=== PATIENT | male | born 1950 | race Caucasian/White ===

== ENCOUNTER → 2019-06-02 07:22 | Outpatient (CLI) | payer MEDICARE, BC | END | disposition home or self-care (01) | LOC: D.US 07:22 → D.HCCARDIO 09:30 | PROVIDERS: ATTEND Internal Medicine Cardiovascular Disease | DX: I65.29 Occlusion and stenosis of unspecified carotid artery (principal) ==

== ENCOUNTER 2019-06-14 10:44 | Inpatient (IN) | payer MEDICARE, BC ==
[2019-06-14] VITALS (10 sets, daily range): BP systolic 127–163; BP diastolic 73–91; BMI 29.2; BMI 29.1
[~2019-06-14] VITALS: Ht 172.7 cm; Wt 87.5 kg
--- NOTE | ~2019-06-14 | HEMODYNAMI ---
PATIENT:CAMI KNAPP MEDICAL RECORD: [id number] : 52 LOCATION:[facility] ADMISSION DATE: 06/14/19 Generatedon:06/14/201913:41 Patient name: CAMI KNAPP Patient #: [id number] SSN: DO B: 1950 Date of study: 06/14/2019 Page: Of Hemodynamic Procedure Report Patient Data Patient Demographics Procedure consent was obtained First Name: CAMI Gender: Male Last Name: RA : 1950 Middle Initial: E Age: 69 year(s) Patient #: [id number] Race: Unknown Additional ID: [id number] Contact details [address]: [address] [place] [address] State: [place] City: [place] Zip code: [address] Past Medical History Allergies: No known allergies Admission Admission Data Admission Date: 06/14/2019 Admission Time: 10:44 Admit Source: Other Lab Results Lab Result Date: 06/14/2019 Lab Result Time: 0:00 Biochemistry Name Units Result Min Max BUN mg/dl 21 --(----)-* 7 18 Creatinine mg/dl 1.5 --(----)-* 0.6 1.3 eGFR ml/min 60 *-(----)-- 90 120 AM eGFR ml/min 49 *-(----)-- 90 120 NONAFRICAN CBC Name Units Result Min Max Hemoglobin g/dl 12.8 -*(----)-- 13.5 17.5 Procedure Procedure Types Cath Procedure Diagnostic Procedure LHC LHC w/Coronaries Procedure Description Procedure Date Procedure Date: 06/14/2019 Procedure Start Time: 13:21 Procedure End Time: 13:39 Procedure Staff Name Function Wesley Tan MD Performing Physician Hussain Smith RT Monitor Ralph Black RN Nurse Judson Simon RT Scrub Lexy Medeiros RT Scrub Procedure Data Cath Procedure Fluoroscopy Diagnostic fluoroscopy Total fluoroscopy Time: 5.5 time: 5.5 min min Diagnostic fluoroscopy Total fluoroscopy dose: 791 dose: 791 mGy mGy Contrast Material Contrast Material Type Amount (ml) Isovue 370 93 Entry Location Entry Primary Successful Side Size Upsize Upsize Entry Closure Badillo ccessful Closure Location (Fr) 1 (Fr) 2 (Fr) Remarks Device Remarks Radial Right 6 Fr Mechanical artery Short Compression Diagnostic catheters Device Type Used For End Catheter Placement DIAGNOSTIC Elmer 110cm LV Angiography 5Fr catheter ([id number]) DIAGNOSTIC AR MOD 5Fr Right Coronary Catheter ([id number]) Angiography DIAGNOSTIC Napanoch 110cm 5 Right Coronary Fr catheter ([id number]) Angiography Procedure Complications No complications Procedure Medications Medication Administration Route Dosage 0.9% NaCl I.V. 100 ml/hr Oxygen etCO2 Nasal cannula 2 l/min Heparin Flush Bag added to field 2 bags (1000units/500ml NS) Lidocaine 2% added to field 20 Radial Cocktail added to field 1 syringe (Verapamil 2mg/Nitro 400mcg/Heparin 1500units) Versed I.V. 1 mg Fentanyl I.V. 50 mcg Versed I.V. 1 mg Fentanyl I.V. 50 mcg Radial Cocktail I.A. 1 syringe (Verapamil 2mg/Nitro 400mcg/Heparin 1500units) Hemodynamics Rest HGB: 12.8 (g/dl) Heart Rate: 79 (bpm) Pressure Samples Time Site Value (mmHg) Purpose Heart Use Rate(bpm) 13:24 LV 103/-1,6 EDP 71 Gradients Valve Time Site Site Mean SEP/DFP Peak To Heart Use 1 2 (mmHg) (sec/min) Peak Rate (mmHg) (bpm) Aortic 13:25 LV AO 77 Snapshots Pre Cath Intra NCS Post Cath Vital Signs Time Heart Resp SPO2 etCO2 NIBP (mmHg) Rhythm Pain Sedation Rate (ipm) (%) (mmHg) Status Level (bpm) 13:06:36 80 11 96 0 148/85(119) NSR 0 (11) 10(A) , No pain 13:10:48 76 18 98 33.9 142/91(132) NSR 0 (11) 10(A) , No pain 13:15:08 68 16 95 24 145/80(125) NSR 0 (11) 10(A) , No pain 13:19:20 70 14 96 24.8 133/84(104) NSR 0 (11) 10(A) , No pain 13:23:36 68 11 97 13.5 127/64(83) NSR 0 (11) 9(A) , No pain 13:27:46 66 12 94 24 107/67(83) NSR 0 (11) 9(A) , No pain 13:31:58 62 12 94 1.5 117/65(90) NSR 0 (11) 9(A) , No pain 13:36:12 71 11 95 9.7 106/67(82) NSR 0 (11) 9(A) , No pain Medications Time Medication Route Dose Verified Delivered Reason Notes Effectiveness by by 13:10:22 0.9% NaCl I.V. 100 Ralph Ralph Per ml/hr Sofia Black physician RN RN 13:10:33 Oxygen etCO2 2 l/min Ralph Ralph for low 02 Nasal Lorigan Lorigan sats cannula RN RN 13:10:43 Heparin Flush added 2 bags Ralph Ralph used for Bag to Loradele Black procedure (1000units/500ml field WYNN RN NS) 13:10:54 Lidocaine 2% added 20ml Ralph Ralph for local to vial Lorigan Lorigan anesthetic field WYNN RN 13:11:04 Radial Cocktail added 1 Ralph Ralph used for (Verapamil to syringe Lorigan Natalieigan procedure 2mg/Nitro field WYNN RN 400mcg/Heparin 1500units) 13:14:00 Versed I.V. 1 mg Ralph Ralph for sedation Sofia Black RN RN 13:14:11 Fentanyl I.V. 50 mcg Ralph Ralph for sedation Sofia Black RN RN 13:21:24 Versed I.V. 1 mg Ralph Ralph for sedation Sofia Black RN RN 13:21:30 Fentanyl I.V. 50 mcg Ralph Ralph for sedation Sofia Black RN RN 13:23:56 Radial Cocktail I.A. 1 Ralph Wesley for (Verapamil syringe Sofia reyna 2mg/Nitro RN 400mcg/Heparin 1500units) Procedure Log Time Note 12:54:14 Admit Source: Other 12:54:38 Procedure Status Elective Heart Cath (OP). 12:54:42 Ralph Black RN sent for patient. Start room use. 12:54:43 Time tracking: Regular hours (M-F 7:00 - 5:00) 12:54:49 Plan of Care:Hemodynamics will remain stable., Cardiac rhythm will remain stable., Comfort level will be maintained., Respiratory function will remain adequate., Patient/ family verbilizes understanding of procedure., Procedure tolerated without complication., Recovers from procedure without complications.. 13:05:23 Patient received from Pre/Post Procedure Room to CCL 1 Alert and oriented. Tansferred to table in Supine position. 13:05:25 Signed procedure consent form obtained from patient. 13:05:26 Warm blankets applied, and zenon hugger turned on for patient comfort. 13:05:27 Correct patient and procedure confirmed by team. 13:05:27 ECG and BP/O2 sat monitors applied to patient. 13:05:28 Baseline sample Acquired. 13:05:28 Vital chart was started 13:05:31 Rhythm: sinus rhythm 13:05:33 Full Disclosure recording started 13:07:42 H&P Date Dictated: 06/02/2019 Within 30 days and on chart.. 13:07:43 Pre-procedure instructions explained to patient. 13:07:44 Pre-op teaching completed and patient verbalized understanding. 13:07:47 Family in waiting room. 13:07:49 Patient NPO since Midnight. 13:07:58 Patient allergic to No known allergies 13:08:00 Is the patient allergic to Iodine/contrast media? No. 13:08:04 Is patient on blood thinner?No 13:08:06 Patient diabetic? No. 13:08:07 ----Pre-sedation anethsthesia assessment.---- 13:08:09 Previous problem with sedation/anesthesia? No ? 13:08:11 Snore? Yes 13:08:12 Sleep apnea? No 13:08:14 Deviated septum? No 13:08:15 Opens mouth fully? Yes 13:08:17 Sticks out tongue? Yes 13:08:21 Airway obstruction? Yes COPD 13:08:25 Dentures? Yes OUT 13:08:29 Pre procedure: right dorsailis pedis pulse 2+ Normal; easily identifiable; not easily obliterated 13:08:32 Modified Chapin's test Ulnar < 7 seconds 13:08:35 Patient pain scale 0/10 ?. 13:08:40 IV patent on arrival in left antecubital with 0.9% NaCl at [facility]. 13: Lab Result : BUN 21 mg/dl : Lab Result : Creatinine 1.5 mg/dl : Lab Result : eGFR NONAFRICAN 49 ml/min : Lab Result : eGFR AM 60 ml/min : Lab Result : Hemoglobin 12.8 g/dl 13:: Lab results completed and on chart. 13:10:01 Right Radial & Right Groin area was prepped with chlora-prep and draped in sterile fashion 13:10:02 Alarms reviewed by R. N. 13:10:03 Sharps counted by scrub and verified by R.N. 13:10:04 Physician arrived 13:10:05 --------ALL STOP TIME OUT------ 13:10:06 Final Timeout: patient, procedure, and site verified with staff and physician. All members of the team are in agreement. 13:10:07 Right Radial & Right Groin site verified by team. 13:10:13 Fire Safety Assessment: A--An alcohol-based skin anteseptic being used preoperatively., C--Open oxygen or nitrous oxide is being used., D--An ESU, laser, or fiber-optic light is being used. 13:10:16 Physical assessment completed. ASA score P 2 - A patient with mild systemic disease as per Wesley Tan MD. 13:10:22 0.9% NaCl 100 ml/hr I.V. was administered by Ralph Black RN; Per physician; 13:10:24 3a) 45-59 Moderately reduced kidney function. 13:10:33 Oxygen 2 l/min etCO2 Nasal cannula was administered by Ralph Black RN; for low 02 sats; 13:10:43 Heparin Flush Bag (1000units/500ml NS) 2 bags added to field was administered by Ralph Black RN; used for procedure; 13:10:44 Maximum allowable contrast dose (3.7 X eGFR X 0.75)136 ml. 13:10:49 Sedation plan: IV Moderate Sedation Medication:Versed, Fentanyl 13:10:54 Lidocaine 2% 20ml vial added to field was administered by Ralph Black RN; for local anesthetic; 13:11:04 Radial Cocktail (Verapamil 2mg/Nitro 400mcg/Heparin 1500units) 1 syringe added to field was administered by Ralph Black RN; used for procedure; 13:14:00 Versed 1 mg I.V. was administered by Ralph Black RN; for sedation; 13:14:11 Fentanyl 50 mcg I.V. was administered by Ralph Black RN; for sedation; 13:14:37 Use device set Radial Dx or PCI 13:14:38 ACIST Syringe (15822) opened to sterile field. 13:14:38 Medline Cath Pack ([id number]) opened to sterile field. 13:14:38 Bag Decanter (2002S) opened to sterile field. 13:14:39 ACIST Hand Control (41293) opened to sterile field. 13:14:39 ACIST Manifold (35344) opened to sterile field. 13:14:40 Tegaderm 4 x 4 (1626W) opened to sterile field. 13:14:40 MBrace Wrist Support (600237310) opened to sterile field. 13:14:42 NEEDLE Cook 21G 4cm Radial (A13571) opened to sterile field. 13:14:44 TR BAND Standard ([id number]) opened to sterile field. 13:14:45 EMERALD Guide Wire (502-668) opened to sterile field. 13:14:46 SHEATH 6FR RAIN (5284585) opened to sterile field. 13:21:14 Procedure started. 13:21:24 Versed 1 mg I.V. was administered by Ralph Black RN; for sedation; 13:21:26 Local anesthetic to right radial artery with Lidocaine 2% by Wesley Tan MD.INITIAL ACCESS ONLY 13:21:30 Fentanyl 50 mcg I.V. was administered by Ralph Black RN; for sedation; 13:21:34 A 6 Fr Short sheath was inserted into the Right Radial artery 13:22:28 A DIAGNOSTIC Elmer 110cm 5Fr catheter (534764) was advanced over the wire and used for LV Angiography. 13:23:28 Zero performed for pressure channel P1 13:23:32 Zero performed for pressure channel P1 13:23:56 Radial Cocktail (Verapamil 2mg/Nitro 400mcg/Heparin 1500units) 1 syringe I.A. was administered by Wesley Tan MD; for vasodilation; 13:24:19 LV angiography performed. 13:24:52 LV gram done using JEFFERY 13:24:53 LV hemodynamics recorded. 13:24:59 Injector settings: Ml/sec: 5, Volume: 15, 13:25:15 EF : 60 % 13:27:07 LCA angiography performed. 13:30:47 Catheter exchanged over wire. 13:31:55 A DIAGNOSTIC AR MOD 5Fr Catheter ([id number]) was advanced over the wire and used for Right Coronary Angiography. 13:33:22 Catheter removed. 13:33:55 A DIAGNOSTIC Napanoch 110cm 5 Fr catheter (376326) was advanced over the wire and used for Right Coronary Angiography. 13:34:42 RCA angiography performed. 13:35:39 Catheter removed. 13:37:22 Sheath removed intact; hemostasis achieved with Mechanical Compression to the Right Radial artery. 13:37:23 Procedure ended.(Physican Out) 13:37:43 Fluoroscopy time 05.50 minutes. 13:37:49 Fluoroscopy dose: 791 mGy 13:37:49 Flurop Dose total: 791 13:38:03 Contrast amount:Isovue 370 93ml. 13:38:05 Sharps counted by scrub and verified by R.N. 13:38:08 TR band inflated with 10cc of air. 13:38:09 Insertion/operative site no bleeding no hematoma. 13:38:12 Post Procedure Pulses reassessed and unchanged 13:38:17 Post-procedure physical assessment completed. ASA score P 2 - A patient with mild systemic disease as per Wesley Tan MD. 13:38:20 Post procedure rhythm: unchanged. 13:38:22 Post procedure instruction explained to patient.Patient verbalizes understanding. 13:38:24 Procedure and supply charges have been captured, reviewed, submitted and are correct. 13:39:03 Procedure Complication : No complications 13:39:05 Vital chart was stopped 13:39:05 See physician's report for complete and final results. 13:39:08 Report given to Pre/Post Procedure Room. 13:39:10 Patient transfered to Pre/Post Procedure Room with Stretcher. 13:39:12 Procedure ended. 13:39:12 Full Disclosure recording stopped 13:39:17 End room use (Document Last) Device Usage Item Name Manufacture Quantity Catalog Hospital Part Current Minima l Lot# / Number Charge Number Stock Stock Serial# Code [facility] Acist 1 01294 852980 040952 117486 20 Syringe Medical (71579) Systems Inc Medline Medline 1 [id number] 393149 53632 331883 5 Cath Pack ([id number]) Bag Microtek 1 2001S 656467 38477 823409 5 Decanter Medical Inc. () ACIST Hand Acist 1 23283 696426 538424 639063 5 Control Medical (42227) Systems Inc ACIST Acist 1 85405 478106 007953 863757 5 Manifold Medical (84149) Systems Inc Tegaderm 4 3M 1 1626W 798009 800082 389794 5 x 4 (1626W) MBrace Advanced 1 140-0250-00 513348 48311 985984 5 Wrist Vascular Support Dynamics ([id number]) NEEDLE Cook Cook Medical 1 R76433 189951 818416 390624 5 21G 4cm Radial (P91791) TR BAND Terumo 1 GJC15-BWT 229783 941221 986572 40 Standard (YHC22MLI) EMERALD Cardinal 1 270-781 758029 534803 722996 5 Guide Wire Health (015-455) SHEATH 6FR Cardinal 1 2021511 863225 5555548 851506 5 [facility] (7459363) DIAGNOSTIC Terumo 1 40-5023 585977 230211 975398 5 Elmer 110cm 5Fr catheter (353540) DIAGNOSTIC Cardinal 1 [id number] 653292 480240 299832 15 AR MOD 5Fr Health Catheter (451887P) DIAGNOSTIC Terumo 1 405013 248444 046959 361953 5 Napanoch 110cm 5 Fr catheter (497216) Signature Audit [place] Stage Time Signature Unsigned Intra-Procedure 06/14/2019 Hussain Smith RT(R) 1:41:41 PM Signatures Performing Physician : Signature : Wesley Tan MD Date : Time : Monitor : Hussain Smith RT Signature : Date : Time : Nurse : Ralph Lorigan Signature : RN Date : Time : [address] [place] [address]
[2019-06-14] MEDS ORDERED: LISINOPRIL20 MG PO (11:02)
[2019-06-14] MEDS ORDERED: MOBIC7.5 MG PO (11:03)
[2019-06-14] MEDS ORDERED: LEVOTHYROXINE75 MCG PO (11:04)
[2019-06-14] MEDS ORDERED: PROCARDIA XL30 MG PO (11:04)
[2019-06-14] MEDS ORDERED: BUPROPION HCL75 MG PO (11:04)
[2019-06-14] MEDS ORDERED: FENOFIBRATE160 MG PO (11:04)
[2019-06-14] MEDS ORDERED: PEPCID AC20 MG PO (11:05)
[2019-06-14] MEDS ORDERED: FLOMAX0.4 MG PO (11:05)
[2019-06-14] MEDS ORDERED: LOVASTATIN20 MG PO (11:05)
[2019-06-14 11:58] LABS: BASOPHILS 0.6 % (0-2); EOSINOPHILS 4.1 % (0-7); HEMATOCRIT 37.3 % (42.0-54.0); HEMOGLOBIN 12.8 g/dL (13.5-17.5); IMMATURE GRANULOCYTES 0.3 % (0-5); LYMPHOCYTES 25.7 % (15-50); MCH 30.5 pg (26.0-34.0); MCHC 34.3 g/dL (31.0-37.0); MCV 88.8 fL (80.0-100.0); MEAN PLATELET VOLUME 10.3 fL (7.4-10.4); MONOCYTES 6.8 % (2-11); NEUTROPHILS 62.5 % (40-80); PLATELET COUNT 253 10x3/uL (130-400); RDW 14.5 % (11.5-14.5); WBC 7.7 10x3/uL (4.8-10.8)
[2019-06-14 12:15] LABS: ANION GAP 12.9 mmol/L (8-16); CALCIUM 8.8 mg/dL (8.5-10.1); CARBON DIOXIDE 25.3 mmol/L (21.0-32.0); CREATININE - SERUM 1.5 mg/dL (0.6-1.3); POTASSIUM - SERUM 4.2 mmol/L (3.5-5.1)
--- NOTE | 2019-06-14 13:51 | NUR ---
PT ARRIVED BY STRETCHER. PLACED ON MONITORS. DR. SAMSON AT BEDSIDE AND UPDATING PT AND PT'S FAMILY. ASSESSMENT COMPLETED. CALL LIGHT WITHIN REACH.
--- NOTE | 2019-06-14 13:51 | NUR ---
PT ARRIVED BY STRETCHER. PLACED ON MONITORS. DR. SAMSON AT BEDSIDE SPEAKING WITH FAMILY. ASSESSMENT COMPLETED. CALL LIGHT WITHIN REACH.
--- NOTE | 2019-06-14 14:05 | NUR ---
PT RESTING COMFORTABLY. FAMILY AT BEDSIDE. RIGHT RADIAL TR BAND IN PLACE. NO BLEEDING/HEMATOMA NOTED. DR. SAMSON ROUNDED BACK THROUGH AND NOTIFIED THE PT THAT HE WOULD BE ADMITTED INTO CVICU TO BE EVALUATED BY THE CV SURGEON.
--- NOTE | 2019-06-14 14:35 | NUR ---
PT TOLERATING FOOD/DRINK. DENIES NAUSEA. RIGHT RADIAL TR BAND IN PLACE. NO BLEEDING/HEMATOMA NOTED. FAMILY AT BEDSIDE. CALL LIGHT WITHIN REACH. NO NEEDS AT THIS TIME.
--- NOTE | 2019-06-14 15:03 | NUR ---
4cc OF AIR REMOVED FROM TR BAND. NO BLEEDING/HEMATOMA NOTED. CALL LIGHT WITHIN REACH. FAMILY AT BEDSIDE. NO NEEDS AT THIS TIME. VSS.
--- NOTE | 2019-06-14 15:17 | NUR ---
4cc OF AIR REMOVED FROM TR BAND. PT TOLERATED WELL. VSS. FAMILY AT BEDSIDE. NO NEEDS AT THIS TIME.
--- NOTE | 2019-06-14 15:35 | NUR ---
RIGHT RADIAL TR BAND REMOVED. DRESSING APPLIED. VSS. NO BLEEDING/HEMATOMA NOTED.
--- NOTE | 2019-06-14 16:00 | NUR ---
PT PACKED UP FOR TRANSFER OVER TO CVICU ROOM 3. DR. DANIEL AT BEDSIDE TO SPEAK WITH PT AND PT'S FAMILY. REPORT GIVEN TO ADAM ESPINOZA RN.
--- NOTE | 2019-06-14 16:56 | NUR ---
REPORT RECIVED FROM RAYMOND WYNN FROM THE TARPER. PT HOOKED TO ICU MONITORS. RIGHT RADIAL DRESSING NOTED C/D/I. WRIST PROTECTOR ON AND IN PLACE. LEFT WRIST IV NOTED. PATENT. SEE IV FLUIDS IN THE FLOW SHEET. SEE ASSESSMENT IN THE PTS FLOW SHEET. PT DENIES PAIN AT THIS TIME. EDUCATED THE PT/FAMILY MEMBERS ABOUT ICU RULES AND VISITATION HOURS. CALL LIGHT IN REACH. WILL CONT POC.
[2019-06-14 17:35] LABS: INR 1.07 (0.85-1.17); PROTIME 13.4 SECONDS (11.6-15.0)
--- NOTE | 2019-06-14 19:20 | NUR ---
REPORT RECEIVED, SHIFT ASSESSMENT COMPLETED PER FLOW SHEET, SEE FOR DETAILS. NO ACUTE DISTRESS NOTED. PPP. DENIES PAIN. URINAL PROIVIDED. DENIES OTHER NEEDS. CALL LIGHT WITHIN REACH. WILL CONTINUE TO MONITOR.
--- NOTE | 2019-06-14 21:01 | NUR ---
VOIDED X1, 775 ML OF CLEAR YELLOW UOP. CALL LIGHT WITHIN REACH. WILL CONTINUE TO MONITOR.
--- NOTE | 2019-06-14 23:01 | NUR ---
REASSESSMENT COMPLETED PER FLOW SHEET, SEE FOR DETAILS. NO ACUTE DISTRESS NOTED. DENIES PAIN OR NEEDS. PPP. CALL LIGHT WITHIN REACH. WILL CONTINUE TO MONITOR.
[2019-06-15] VITALS (22 sets, daily range): BP systolic 119–176; BP diastolic 57–96; BMI 29.5
--- NOTE | 2019-06-15 00:38 | NUR ---
URINE SAMPLE COLLECTED FOR UA AND SEND TO LAB. PATIENT VOIDED 420 ML CLEAR YELLOW UOP. DENIES NEEDS. CALL LIGHT WITHIN REACH.
--- NOTE | 2019-06-15 01:00 | NUR ---
RESTING, NO ACUTE DISTRESS NOTED. WILL CONTINUE TO MONITOR.
[2019-06-15 02:52] LABS: APPEARANCE CLEAR (CLEAR); BILIRUBIN NEGATIVE (NEGATIVE); COLOR YELLOW (YELLOW); GLUCOSE NEGATIVE (NEGATIVE); KETONE NEGATIVE (NEGATIVE); NITRITE NEGATIVE (NEGATIVE); PROTEIN NEGATIVE (NEGATIVE); UROBILINOGEN NORMAL (NORMAL)
--- NOTE | 2019-06-15 03:01 | NUR ---
REASSESSMENT COMPLETED PER FLOW SHEET, SEE FOR DETAILS. NO ACUTE CHANGES NOTED. DENIES PAIN OR NEEDS. CALL LIGHT WITHIN REACH. WILL CONTINUE TO MONITOR.
--- NOTE | 2019-06-15 05:00 | NUR ---
AT BEDSIDE, QUESTIONS ANSWERED. PATIENT DENIES NEEDS. WILL CONTINUE TO MONITOR.
--- NOTE | 2019-06-15 06:00 | NUR ---
PATIENT REFUSED BATH AT THIS TIME.
--- NOTE | 2019-06-15 06:22 | NUR ---
BP 171/95. PAGED DR. SAMSON, WILL WAIT FOR CALL BACK.
--- NOTE | 2019-06-15 06:24 | NUR ---
DR. SAMSON RETURNED CALL, INFORMED HIM OF HIGH BP, REVIEWED HOME MEDS AND INFORMED HIM OF NPO STATUS. PER HIS ORDERS GIVE PROCARDIA AT THIS TIME.
[2019-06-15 06:41] LABS: HEMATOCRIT 36.5 % (42.0-54.0); HEMOGLOBIN 12.5 g/dL (13.5-17.5); MCH 30.5 pg (26.0-34.0); MCHC 34.2 g/dL (31.0-37.0); MEAN PLATELET VOLUME 9.8 fL (7.4-10.4); RBC 4.1 10x6/uL (4.20-6.10); RDW 14.6 % (11.5-14.5); WBC 7.5 10x3/uL (4.8-10.8)
--- NOTE | 2019-06-15 07:00 | NUR ---
REPORT RECEIVED FROM THE OFF GOING RN. SEE ASSESSMENT IN THE PTS FLOW SHEET. LAB RESULTS PENDING. WILL NOTIFY DR DANIEL ONCE LABS RECIEVED. PT DENIES PAIN AT THIS TIME. PT INSTUCTED TO USE IS 10X'S/H. PT PULLS ABOUT 2000. CALL LIGHT IN REACH. WILL CONT POC.
[2019-06-15 07:03] LABS: ANION GAP 11.4 mmol/L (8-16); CALCIUM 8.3 mg/dL (8.5-10.1); CARBON DIOXIDE 26.9 mmol/L (21.0-32.0); CREATININE - SERUM 1.4 mg/dL (0.6-1.3); POTASSIUM - SERUM 4.3 mmol/L (3.5-5.1)
--- NOTE | 2019-06-15 07:20 | NUR ---
SPOKE WITH DR DANIEL ABOUT THE PTS LEGAL ADVISOR. DR DANIEL OK'D TO PROCEED WITH CTA OF CAROTIDS.
--- NOTE | 2019-06-15 08:05 | NUR ---
PT LEFT FOR CTA.
--- NOTE | 2019-06-15 08:14 | NUR ---
PT BACK FROM CTA. HOOKED BACK TO MONITOR.
--- NOTE | 2019-06-15 09:22 | NUR ---
MADDI WYNN SPOKE WITH DR DANIEL. KEEP PLASMALYTE FLUIDS AT 100CC/H. ORDER A REGULAR DIET FOR THE PT AND ALLOW HIM TO EAT. DR DANIEL WILL BE BY TO SPEAK WITH THE PT SOON.
--- NOTE | 2019-06-15 10:40 | NUR ---
PT UP AND WALKING AROUND IN HIS ROOM. NORMAL STEADY GAIT NOTED. VSS. WILL CONT POC.
--- NOTE | 2019-06-15 11:06 | NUR ---
COMMERCIAL REAL ESTATE LENDER AT THE PTS BEDSIDE.
--- NOTE | 2019-06-15 12:34 | NUR ---
DR DANIEL AT THE PTS BEDSIDE TALKING ABOUT THE CEA. NO QUESTIONS AT THIS TIME. CONSENT FOR RIGHT CEA SIGNED AND PLACED IN CHART.
--- NOTE | 2019-06-15 13:09 | NUR ---
DR OWEN CALLED AND NOTIFIED ABOUT CONSULT. HE ORDERED PFT AND A SIX MIN WALK TEST. RT NOTIFIED.
[2019-06-15 13:21] LABS: APTT 29.3 SECONDS (22.8-39.4); INR 1.04 (0.85-1.17); PROTIME 13.1 SECONDS (11.6-15.0)
[2019-06-15 13:29] LABS: ALBUMIN 3.5 g/dL (3.4-5.0); ANION GAP 13.2 mmol/L (8-16); BILIRUBIN - TOTAL 0.26 mg/dL (0.2-1.3); CALCIUM 8.5 mg/dL (8.5-10.1); CARBON DIOXIDE 26.9 mmol/L (21.0-32.0); CREATININE - SERUM 1.5 mg/dL (0.6-1.3); POTASSIUM - SERUM 4.1 mmol/L (3.5-5.1); PROTEIN - SERUM 6.6 g/dL (6.4-8.2)
--- NOTE | 2019-06-15 14:45 | NUR ---
I CALLED [facility] AND ASKED THEM TO FAX A RESENT CHEST CT PER DR SY REQUEST. IT WAS FAXED OVER, DR OWEN REVIEWED CT RESULTS. RESULTS PLACED IN CHART.
--- NOTE | 2019-06-15 16:15 | NUR ---
PT REFUSED CHB. EXPLAINED TO THE PT THAT HE IS GOING TO HAVE TO HAVE A BATH BEFORE SURGERY TONIGHT AND HE AGREED.
--- NOTE | 2019-06-15 19:00 | NUR ---
REPORT RECEIVED, SHIFT ASSESSMENT COMPLETE PER FLOW SHEET, PT AAOx4 SITTING UP IN CHAIR, DENIES PAIN OR DISTRESS, VSS, MINIMAL ASSIST TO BED, REPOSITIONED FOR COMFORT, LARGE CUP WATER PER REQUEST, WILL CONTINUE TO MONITOR
--- NOTE | 2019-06-15 19:13 | MORECARE ---
CASE MANAGEMENT DISCHARGE SUMMARY PATIENT: CAMI KNAPP UNIT: [id number] ADM DATE: 06/14/19 AGE: 69 : 51 SEX: M [facility] AUTHOR: RENZO,DOC PHYSICIAN: REFERRING PHYSICIAN: ZEHRA SAMSON M.D. DATE OF SERVICE: 06/15/19 Discharge Plan Patient Name: CAMI KNAPP Facility: [facility]:[place] : 1950 Planned Disposition: Home Anticipated Discharge Date: Discharge Date: Expected LOS: Initial Reviewer: [email or web address] Initial Review Date: 06/15/2019 Generated: 06/15/19 8:13 pm Comments DCP- Discharge Planning Updated by [email or web address]: Eliana Cassidy on 06/15/19 6:[address] Patient Name: CAMI KNAPP Admission Status: Elective Accout number: [id number] Admission Date: 06-14-2019 : 1950 Admission Diagnosis:ABNORMAL RESULT OF CARDIOVASCULAR FUNCTI Attending: ZEHRA SAMSON Current LOS: 1 Anticipated DC Date: Planned Disposition: Home Primary Insurance: MEDICARE A & B Discharge Planning Comments: CM met with patient and spouse (Ayana) at bedside after explaining CM role and obtaining verbal consent. Patient lives at home with his Ayana and plans to return there upon discharge. Patient feels this would be a safe discharge. CM discussed availability / needs of home health and medical equipment. Patient denies any discharge needs at this time. Patient states he will have his drive him home upon discharge. CM will continue to follow and assist as needed with discharge planning / needs. Manufacturer: Eliana Cassidy DCPIA - Discharge Planning Initial Assessment Updated by [email or web address]: Eliana Cassidy on 06/15/19 7:11 pm * Is the patient Alert and Oriented? Yes * How many steps to enter\exit or inside your home? ramp * PCP [facility] * Pharmacy [facility] * Preadmission Environment Home with Family * ADLs Independent * Equipment None * List name and contact numbers for known caregivers / representatives who currently or will assist patient after discharge: AYANA KNAPP - - [phone] * Verbal permission to speak to the caregivers and representatives has been obtained from the patient. Yes * Community resources currently utilized None * Additional services required to return to the preadmission environment? No * Can the patient safely return to the preadmission environment? Yes * Has this patient been hospitalized within the prior 30 days at any hospital? No Patient Name: CAMI KNAPP Page 30015 at 1913 All edits/amendments must be made on the electronic document DICTATION DATE: 06/15/191911 MECHANICAL MAINTENANCE SUPERVISOR: ANGIE 06/15/191911 RPT#: [id number] DC DATE: STATUS: ADM IN [facility] [address] [place] [address] END OF REPORT
--- NOTE | 2019-06-15 20:00 | NUR ---
FAMILY AT BEDSIDE, UPDATE GIVEN, NO FURTHER NEEDS
[2019-06-16] VITALS (41 sets, daily range): BP systolic 91–161; BP diastolic 46–89
--- NOTE | 2019-06-16 04:22 | NUR ---
PREP/CLIPPED, CHG BATH, COMPLETE LINEN AND GOWN CHANGE, ASHA HOSE AND NON SLIP SOCKS BLE, VSS, WILL CONTINUE TO MONITOR
--- NOTE | 2019-06-16 04:30 | NUR ---
FAMILY AT BEDSIDE, UPDATE GIVEN, NO FURTHER NEEDS AT THIS TIME
--- NOTE | 2019-06-16 07:00 | NUR ---
REPORT RECEVIED FROM THE OFF GOING RN. SEE ASSESSMENT IN THE PTS FLOW SHEET. PT LYING IN BED. VSS AT THIS TIME. PT DENIES PAIN/NEEDS. CALL LIGHT IN REACH. WILL CONT POC.
[2019-06-16 08:20] LABS: ANION GAP 12.9 mmol/L (8-16); CALCIUM 8.4 mg/dL (8.5-10.1); CARBON DIOXIDE 25.3 mmol/L (21.0-32.0); CREATININE - SERUM 1.4 mg/dL (0.6-1.3); POTASSIUM - SERUM 4.2 mmol/L (3.5-5.1)
[2019-06-16 08:21] LABS: BASOPHILS 0.2 % (0-2); EOSINOPHILS 2.5 % (0-7); HEMATOCRIT 37.4 % (42.0-54.0); IMMATURE GRANULOCYTES 0.3 % (0-5); LYMPHOCYTES 15.1 % (15-50); MCH 30.9 pg (26.0-34.0); MCHC 34.8 g/dL (31.0-37.0); MCV 88.8 fL (80.0-100.0); MEAN PLATELET VOLUME 10.3 fL (7.4-10.4); MONOCYTES 6.8 % (2-11); NEUTROPHILS 75.1 % (40-80); PLATELET COUNT 255 10x3/uL (130-400); RBC 4.21 10x6/uL (4.20-6.10); RDW 14.8 % (11.5-14.5)
[2019-06-16 08:22] LABS: WBC 11.5 10x3/uL (4.8-10.8)
--- NOTE | 2019-06-16 08:25 | NUR ---
AM MEDS GIVEN WITH NO ISSUES.
--- NOTE | 2019-06-16 11:11 | NUR ---
OR CALLED AND CALLED TO PREOP PT.
--- NOTE | 2019-06-16 11:48 | NUR ---
PT PROVIDED SELF PERICARE AND UA OBTAINED UA MIDSTREAM. UA SENT TO THE LAB.
[2019-06-16 12:17] LABS: APPEARANCE CLEAR (CLEAR); BILIRUBIN NEGATIVE (NEGATIVE); COLOR YELLOW (YELLOW); GLUCOSE NEGATIVE (NEGATIVE); KETONE NEGATIVE (NEGATIVE); NITRITE NEGATIVE (NEGATIVE); PROTEIN NEGATIVE (NEGATIVE); SPECIFIC GRAVITY 1.005 (1.005-1.020); UROBILINOGEN NORMAL (NORMAL)
--- NOTE | 2019-06-16 12:50 | NUR ---
PT LEFT FOR SUGERY. ABT WENT WITH DR GLASGOW.
--- NOTE | 2019-06-16 14:45 | NUR ---
PT HAD A LARGE FORMED/DIARRHEA BM. PT STATED THAT HE TOOK LAXIATIVES BEFORE HIS SURGERY LAST NIGHT. PT CLEANED AND BED LINENS CHANGED.
--- NOTE | 2019-06-16 15:47 | NUR ---
PT TOLERATING ICE CHIPS WELL.
--- NOTE | 2019-06-16 16:38 | NUR ---
PT ARRIVED BACK IN THE UNIT. PT SEDATED BUT FOLLOWING COMMANDS. PT ON 10L VIA SIMPLE MASK. RIGHT NECK DRESSING C/D/I. RIGHT UPPER CHEST DRESSING C/D/I WITH A SINGLE FUNMI DRAIN NOTED. RIGHT SUBCLAVIAN CVL DRESSING C/D/I AND PATENT. RIGHT RADIAL DELVIN NOTED WITH A WRIST PROTECTOR ON. CAP REFILL <3 SECONDS. FC NOTED WITH CLEAR, YELLOW URINE. NO STIDOR NOTED. TRACHEA MIDLINE. SMILE SYMETRICAL. BILATERAL APPOINTMENT SPECIALIST EQUAL. WILL CONT POC/MONITOR.
--- NOTE | 2019-06-16 17:00 | NUR ---
DR DANIEL AT THE PTS BEDSIDE. 200CC BOLUS OVER [address] DANIEL.
--- NOTE | 2019-06-16 18:00 | NUR ---
PT DOING WELL. VSS.
--- NOTE | 2019-06-16 19:00 | NUR ---
Received patient resting in bed with eyes closed, assessment completed per flowsheet. Patient awakens easily to voice, answers appropriately/follows instructions. R anterior neck incision dresssing CDI, no difficulty breathing/swallowing noted. S1/S2 noted NSR with ST depression on telemetry, rythmic and regular. Breathing is shallow/unlabored on 4L via NC with O2 sat 98%, lung sounds clear bilateral upper and mid with diminished lower. R upper chest FUNMI x1 with small bloody drainage, compressed with dressing CDI. Abdomen is round/soft with bowel sounds hypoactive x4, non-tender. [place] secured, clear/yellow urine noted. R radial A-line with good waveform, wrist protector in place with good sensation. Repositioned for comfort, denies pain or other needs at this time. See flowsheet for details, all VSS and will continue to monitor.
--- NOTE | 2019-06-16 21:00 | NUR ---
Patient resting in bed with eyes open, family at bedside for visitation. Discussed post-op care/medications, all questions answered to satisfaction. Patient tolerating ice chips, small sips of water given with no coughing/choking observed. HS meds given without difficulty, all VSS and will continue to monitor.
--- NOTE | 2019-06-16 22:52 | NUR ---
Reassessment completed per flowsheet, no changes noted from previous assessment. Patient NSR with ST depression on telemetry, rythmic and regular. Breathing is even/unlabored on 4L via NC with O2 sat 98%, lung sounds clear bilateral upper and mid with diminished lower. R anterior neck incision dressing CDI, no difficulty breathing/swallowing noted. R upper chest FUNMI x1 with small bloody drainage, compressed with dressing CDI. 2000ml observed on IS, RT at bedside. Repositioned for comfort, denies pain or other needs at this time. See flowsheet for details, all VSS and will continue to monitor.
[2019-06-17] VITALS (31 sets, daily range): BP systolic 97–145; BP diastolic 44–74; Ht 172.7 cm; Wt 87.5 kg
--- NOTE | 2019-06-17 01:00 | NUR ---
Patient sleeping in bed with eyes closed, no s/s of distress at this time. L anterior neck incision dressing CDI, no breathing/swallowing difficulties noted. All pulses palpable, all VSS and will continue to monitor.
--- NOTE | 2019-06-17 02:55 | NUR ---
Reassessment completed per flowsheet, no changes noted from previous assessment. S1/S2 noted NSR with ST depression on telemetry, rythmic and regular. Breathing is even/unlabored on 2L via NC with O2 sat 96%, lung sounds clear bilateral upper and mid with diminished lower. R anterior neck incision dressing CDI, R upper chest incision dressing CDI. All pulses palpable with cap refill < 3 sec, skin warm/dry. Denies pain or other needs at this time, see flowsheet for details. All VSS and will continue to monitor.
[2019-06-17 05:48] LABS: BASOPHILS 0.1 % (0-2); EOSINOPHILS 1.9 % (0-7); HEMATOCRIT 31.7 % (42.0-54.0); HEMOGLOBIN 10.7 g/dL (13.5-17.5); IMMATURE GRANULOCYTES 0.1 % (0-5); LYMPHOCYTES 12.6 % (15-50); MCH 30.6 pg (26.0-34.0); MCHC 33.8 g/dL (31.0-37.0); MCV 90.6 fL (80.0-100.0); MEAN PLATELET VOLUME 9.9 fL (7.4-10.4); MONOCYTES 7.2 % (2-11); NEUTROPHILS 78.1 % (40-80); RDW 15.1 % (11.5-14.5); WBC 9.4 10x3/uL (4.8-10.8)
[2019-06-17 05:55] LABS: PLATELET COUNT 192 10x3/uL (130-400)
[2019-06-17 06:08] LABS: ALBUMIN 2.9 g/dL (3.4-5.0); ANION GAP 10.8 mmol/L (8-16); BILIRUBIN - TOTAL 0.51 mg/dL (0.2-1.3); CALCIUM 7.9 mg/dL (8.5-10.1); CARBON DIOXIDE 26.5 mmol/L (21.0-32.0); CREATININE - SERUM 1.4 mg/dL (0.6-1.3); POTASSIUM - SERUM 4.3 mmol/L (3.5-5.1); PROTEIN - SERUM 5.9 g/dL (6.4-8.2)
--- NOTE | 2019-06-17 08:41 | OP ---
PATIENT NAME: CAMI KNAPP MEDICAL RECORD: [id number] :51 LOCATION[id number] ADMISSION DATE:06/14/19 SURGEON: TONY DANIEL MD DATE OF OPERATION: 06/16/2019 SURGEON: Tony Daniel MD MORTGAGE BROKER: Ras Bradshaw. OPERATION PERFORMED: Right carotid endarterectomy. PREOPERATIVE DIAGNOSIS: Coronary artery disease and right carotid stenosis. POSTOPERATIVE DIAGNOSIS: Coronary artery disease and right carotid stenosis. ANESTHESIA: General endotracheal anesthesia. ESTIMATED BLOOD LOSS: 10 cc. COMPLICATIONS: None. SPECIMENS: Plaque. CONDITION: Stable. DISPOSITION: CV ICU. OPERATIVE FINDINGS: Irregular calcified plaque in the distal carotid bulb and proximal internal carotid artery with a moderately tortuous and somewhat small internal carotid, the plaque feathered well distally and a CorMatrix patch closure was performed. Neurologically intact to CV ICU. OPERATIVE INDICATION: Carotid stenosis and coronary artery disease. DESCRIPTION OF PROCEDURE: The patient was brought to the operating suite. General anesthesia was obtained, the patient was prepped and draped. An oblique incision was made in the neck, taken down the subcutaneous tissue and platysma. The common carotid artery was dissected out and this was divided between clips. Large facial venous branches were divided between ligatures and suture ligatures. The external carotid thyroid branch were dissected and encircled with a vessel loop. Internal carotid was dissected out beyond the region tortuosity. Heparin was given. After the heparin had circulated, backbleeding was controlled with a bulldog type clamp, inflow with a vascular clamp and backbleeding with external carotid and thyroid branch were controlled with vessel loops. After the heparin had circulated and the patient has been clamped for 2 minutes, the cerebral oximetry and EEG remained baseline. Therefore, the endarterectomy was begun with an arteriotomy in the common carotid artery through a region of dense calcified plaque and into a relatively normal region of internal carotid. The plaque was divided in the common carotid artery with an eversion endarterectomy of the external carotid and the plaque feathered well distally. Thorough irrigation was taken. All bits of loose debris were removed. A CorMatrix patch was fashioned to appropriate size and sutured along the edge of the arteriotomy. Prior to completing the anastomosis, backbleeding OPERATIVE REPORT [id number] CAMI KNAPP was allowed from all 3 major vessels and again thorough irrigation of the endarterectomy bed. The anastomosis completed, flow restored first to the external carotid and then to the internal carotid. Interrupted patch sutures were used. Protamine was given. Thorough irrigation was undertaken. Hemostasis was assured. A drain was placed through a separate stab wound. The wound was then closed in 3 layers including subcuticular and Dermabond and anesthesia reversed. The patient was neurologically intact to CV ICU. TRANSINT:[id number] Voice Confirmation ID: [id number] DOCUMENT ID: [id number] TONY DAINEL MD at 0841 CC: ZEHRA SAMSON M.D. [id number] DICTATION DATE: 06/16/19 171 QUALITY INSPECTOR: 06/16/19 2151 ADM IN [facility] [id number] [place] [address]
--- NOTE | 2019-06-17 10:31 | NUR ---
0850: R RADIAL ARTERIAL LINE DC'D. MANUAL PRESSURE HELD X 3 MIN. DRESSED WITH 2X2 AND TEGADERM. 0900: R NECK FUNMI DRAIN DC'D. SITE DRESSED WITH 4X4 AND TEGADERM. 0915: ROSSY DC'D.
--- NOTE | 2019-06-17 19:15 | NUR ---
Received patient resting in bed with eyes closed, assessment completed per flowsheet. Patient AO x4, answers appropriately/follows instructions. R anterior neck incision dressing CDI, no difficulty breathing/swallowing noted. S1/S2 noted NSR on telemetry, rythmic and regular. Breathing is even/unlabored on room air with O2 sat 97%, lung sounds clear throughout. Abdomen is round/soft with bowel sounds active x4, non-tender. Patient Ambulates to bathroom with standby assist, gait is upright/steady. Denies pain or other needs at this time, see flowsheet for details. All VSS and will continue to monitor.
--- NOTE | 2019-06-17 21:00 | NUR ---
Patient sitting in bed with eyes open and at bedside, discussed post-op status/upcoming procedure with all questions answered to satisfaction. HS meds given without difficulty, denies further needs at this time. All VSS and will continue to monitor.
--- NOTE | 2019-06-17 22:00 | NUR ---
2nd unit FFP completed, no s/s of reaction and will continue to monitor.
--- NOTE | 2019-06-17 23:02 | NUR ---
Reassessment completed per flowsheet, no changes noted from previous assessment. S1/S2 noted NSR on telemetry, rythmic and regular. Breathing is even/unlabored on room air with O2 sat 96%, lung sounds clear throughout. R anterior neck/R upper chest incision dressing CDI, no bleeding/drainage noted. All pulses palpable with cap refill < 3 sec, skin warm/dry. Denies pain or other needs at this time, see flowsheet for details. All VSS and will continue to monitor.
[2019-06-18] VITALS (16 sets, daily range): BP systolic 118–157; BP diastolic 53–80
--- NOTE | 2019-06-18 01:00 | NUR ---
Patient sitting up in chair at bedside, resting with eyes closed. No s/s of distress at this time, all VSS and will continue to monitor.
--- NOTE | 2019-06-18 03:10 | NUR ---
Reassessment completed per flowsheet, no changes noted from previous assessment. S1/S2 noted NSR on telemetry, rythmic and regular. Breathing is even/unlabored on room air with O2 sat 96%, lung sounds clear throughout. R anterior neck/R upper chest incision dressing CDI, no bleeding/swelling noted. All pulses palpable with cap refill < 3 sec, skin warm/dry. Denies pain or other needs at this time, see flowsheet for details. All VSS and will continue to monitor.
--- NOTE | 2019-06-18 04:10 | NUR ---
Patient off unit to radiology for PA/Lat, tolerated well. Returned to CV and placed in chair at bedside at patient request, no further needs and will continue to monitor.
--- NOTE | 2019-06-18 05:00 | NUR ---
Patient resting in chair at bedside, AM labs collected without difficulty. Denies pain or other needs at this time, all VSS and will continue to monitor.
[2019-06-18 06:02] LABS: BASOPHILS 0.2 % (0-2); HEMATOCRIT 32.4 % (42.0-54.0); HEMOGLOBIN 10.9 g/dL (13.5-17.5); IMMATURE GRANULOCYTES 0.2 % (0-5); LYMPHOCYTES 14.1 % (15-50); MCH 30.4 pg (26.0-34.0); MCHC 33.6 g/dL (31.0-37.0); MCV 90.3 fL (80.0-100.0); MEAN PLATELET VOLUME 10.1 fL (7.4-10.4); MONOCYTES 9.3 % (2-11); NEUTROPHILS 72.2 % (40-80); PLATELET COUNT 188 10x3/uL (130-400); RBC 3.59 10x6/uL (4.20-6.10); WBC 8.9 10x3/uL (4.8-10.8)
[2019-06-18 06:13] LABS: APTT 30.7 SECONDS (22.8-39.4); INR 1.09 (0.85-1.17); PROTIME 13.6 SECONDS (11.6-15.0)
[2019-06-18 06:28] LABS: ALBUMIN 3.1 g/dL (3.4-5.0); ANION GAP 10.9 mmol/L (8-16); BILIRUBIN - TOTAL 0.4 mg/dL (0.2-1.3); CALCIUM 8.2 mg/dL (8.5-10.1); CARBON DIOXIDE 26.3 mmol/L (21.0-32.0); CREATININE - SERUM 1.2 mg/dL (0.6-1.3); PHOSPHOROUS 2.9 mg/dL (2.5-4.9); POTASSIUM - SERUM 4.2 mmol/L (3.5-5.1); PROTEIN - SERUM 6.4 g/dL (6.4-8.2); T4 THYROXIN - FREE 1.18 ng/dL (0.76-1.46); THYROID STIMULATING HORMONE 3.99 uIU/mL (0.36-3.74); URIC ACID 6.1 mg/dL (2.6-7.2)
[2019-06-18 16:39] LABS: APPEARANCE CLEAR (CLEAR); BILIRUBIN NEGATIVE (NEGATIVE); COLOR STRAW (YELLOW); GLUCOSE NEGATIVE (NEGATIVE); KETONE NEGATIVE (NEGATIVE); NITRITE NEGATIVE (NEGATIVE); PROTEIN NEGATIVE (NEGATIVE); SPECIFIC GRAVITY 1.015 (1.005-1.020); UROBILINOGEN NORMAL (NORMAL)
[2019-06-18 16:41] LABS: BACTERIA FEW /hpf (NONE SEEN); EPITHELIAL CELLS 0-5 /hpf (0-5); RED CELLS - URINE 0-5 /hpf (0-5); WHITE CELLS - URINE OCC /hpf (0-5)
--- NOTE | 2019-06-18 19:04 | NUR ---
REPORT RECEIVED, SHIFT ASSESSMENT COMPLETED PER FLOW SHEET. AAOX4. PPP. RT NECK INCISION SITE OPEN TO AIR, WELL APPROXIMATED, NO DRAINAGE. NO DIFFICULTY SWALLOWING. RT SUBCLAVIAN CVL PATENT, DRESSING C/D/I. DENIES PAIN OR NEEDS. SEE FLOW SHEET FOR COMPLETE ASSESSMENT. WILL CONTINUE TO MONITOR. CALL LIGHT WITHIN REACH.
--- NOTE | 2019-06-18 21:00 | NUR ---
SCHEDULED MEDS GIVEN, SEE EMAR FOR DETAILS. WATER PROVIDED. DENIES OTHER NEEDS. CALL LIGHT WITHIN REACH.
--- NOTE | 2019-06-18 22:00 | NUR ---
PATIENT BACK IN BED, GAIT STEADY, AMBULATES INDEPENDENTLY WITHOUT ANY PROBLEMS. CALL LIGHT WITHIN REACH. DENIES NEEDS. WILL CONTINUE TO MONITOR.
--- NOTE | 2019-06-18 23:01 | NUR ---
REASSESSMENT COMPLETED PER FLOW SHEET, SEE FOR DETAILS. NO ACUTE CHANGES NOTED. DENIES NEEDS. WILL CONTINUE TO MONITOR. CALL LIGHT WITHIN REACH.
[2019-06-19] VITALS (54 sets, daily range): BP systolic 90–150; BP diastolic 52–75
--- NOTE | 2019-06-19 01:00 | NUR ---
RESTING, NO ACUTE DISTRESS NOTED, DENIES NEEDS. WILL CONTINUE TO MONITOR.
--- NOTE | 2019-06-19 03:01 | NUR ---
REASSESSMENT COMPLETED PER FLOW SHEET, SEE FOR DETAILS. NO ACUTE DISTRESS NOTED. DENIES NEEDS. CALL LIGHT WITHIN REACH.
--- NOTE | 2019-06-19 04:00 | NUR ---
CHG BATH GIVEN. PREPPED AND CLIPPED. COMPLETE BED LINEN CHANGE. DENIES NEEDS. CALL LIGHT WITHIN REACH.
--- NOTE | 2019-06-19 04:31 | NUR ---
AT BEDSIDE, QUESTIONS ANSWERED. PATIENT AND DENY NEEDS. CALL [facility] WITHIN REACH.
--- NOTE | 2019-06-19 05:49 | NUR ---
DR. MARÍA CARLTON'S ASSISSTANT AT BEDSIDE SPEAKING WITH PATIENT AND FAMILY REGARDING AM SURGERY.
--- NOTE | 2019-06-19 06:09 | NUR ---
SPOKE TO DR. FISH, PER HIS ORDERS OK TO GIVE PREOP MEDS NOW.
--- NOTE | 2019-06-19 06:30 | NUR ---
PATIENT OUT OF ROOM FOR AM SURGERY, ACCOMPANIED BY REGISTERED ROUTE ASSOCIATE AND DR. FISH.
--- NOTE | 2019-06-19 07:00 | NUR ---
Shift report received. Pt in OR at this time.
--- NOTE | 2019-06-19 12:45 | NUR ---
PT ARRIVED TO UNIT AROUND 1226 VIA BED. INTUBATED. ATTEMPTING TO OPEN EYES. ETT SIZE 8, 22 AT THE LIP. R-SUB CVL WITH PLASMOLYTE AT 100ML/HR, AMIODARONE AT 33.3ML/HR, AND DAPHNE AT 0.4MCG/KG/MIN. MIDSTERNAL INCISION WITH DRESSING C/D/I. SUBSTERNAL CT X 3 (2Y'D TOGETHER), L AND R JOYCE DRAIN. TPM WIRES COILED AND SECURED. CT CONNECTED TO 20 CM SUCTION. NO AIR LEAK NOTED. BLAIR IN PLACE WITH CLEAR YELLOW URINE NOTED. RLE HARVEST SITES WRAPPED IN [place]BAN DRESSING FROM GROIN TO ANKLE. RIGHT SIDE OF NECK HAS INCISION WHICH IS OPEN TO AIR. SEE FLOWSHEET FOR IN DETAIL ASSESSMENT. SAFETY MEASURES IN PLACE. WRIST RESTRAINTS APPLIED ON ARRIVAL PER ORDERS. R-RADIAL DELVIN SECURED WITH WRIST PROTECTOR. WILL CONTINUE TO MONITOR.
--- NOTE | 2019-06-19 13:30 | NUR ---
DR. DANIEL NOTIFIED OF ABG'S. ORDERED TO INCREASE RATE FROM 14 TO 16, AND TV TO 600. RT NOTIFIED.
--- NOTE | 2019-06-19 14:45 | NUR ---
Nutrition Follow-up: S/p CABG this AM. Diet: NPO (CLD when fully awake and advance to regular diet) PO intake: 97% avg of last 6 meals (prior to NPO status) BM: 06/18 Wt: 187# Labs noted: 06/18 - Glu 110, A1C 6.1, Ca 8.2, Alb 3.1 Meds reviewed. Rec advance diet as tolerated as medically feasible. RD following.
--- NOTE | 2019-06-19 15:30 | NUR ---
ON CPAP TRIALS AT THIS TIME. WILL CONTINUE TO MONITOR CLOSELY.
--- NOTE | 2019-06-19 16:45 | NUR ---
PT EXTUBATED AT THIS TIME PER DR. DANIEL'S ORDERS. PLACED ON 4L O2 VIA NC. BP 105/55. 02 SAT 95%. RESTING COMFORTABLY. WILL CONTINUE TO MONITOR.
--- NOTE | 2019-06-19 17:20 | NUR ---
RATES PAIN 8/10 AT INCISION SITE. MORPHINE IV GIVEN PER ORDERS.
--- NOTE | 2019-06-19 18:28 | NUR ---
PECOCET 10 GIVEN FOR 8/10 PAIN AT INCISION SITE. BEST I.S. EFFORT 500. COUGH IS WEEK. WILL CONTINUE TO MONITOR.
--- NOTE | 2019-06-19 19:01 | NUR ---
REPORT RECEIVED, SHIFT ASSESSMENT COMPLETED PER FLOW SHEET. AAOX4. PPP. CVP AND ARTERIAL LINE LEVELED AND ZEROED WITH GOOD WAVEFORM. DR. DANEIL NOTIFIED BY DAY SHIFT RN OF LOW UOP, ORDERS FOR ABG, WAITING FOR RT TO OBTAIN ABG. SEE FLOW SHEET FOR COMPLETE ASSESSMENT. WILL CONTINUE TO MONITOR.
--- NOTE | 2019-06-19 19:09 | NUR ---
DR. DANIEL NOTIFIED OF LOW URINE OUTPUT. ORDERED ABGS.
--- NOTE | 2019-06-19 19:39 | NUR ---
CALLED AND SPOKE TO DR. DANIEL. UPDATE GIVEN 0N PATIENT'S CURRENT STATUS, VITAL SIGNS, IV DRIPS, ABG RESULTS, AND OUTPUT REVIEWED. NEW ORDERS RECEIVED FOR 200 ML NS BOLUS OVER 1 HR AND 0.5 MG OF CALCIUM CHLORIDE AND TO CALL PULMONOLOGY PHYSICIAN TO REPORT CURRENT ABG RESULTS.
--- NOTE | 2019-06-19 19:44 | NUR ---
PAGED DR. DRAKE, WILL WAIT FOR CALL BACK.
--- NOTE | 2019-06-19 19:50 | NUR ---
NS BOLUS AND CALCIUM CHLORIDE INFUSING ORDERED PER DR. DANIEL. WATER PROVIDED TO PATIENT PER HIS REQUEST, TOLERATING WELL, NO DYSPHAGIA. WILL CONTINUE TO MONITOR.
--- NOTE | 2019-06-19 19:55 | NUR ---
DR. DRAKE RETURNED CALL. UPDATE GIVEN ON PATIENT'S CURRENT STATUS AND ABG RESULTS. ORDERS RECEIVED TO KEEP PATIENT ON NC AND FOR BIPAP PRN ONLY 10/5, 40%.
--- NOTE | 2019-06-19 20:34 | NUR ---
SCHEDULED MEDS GIVEN, SEE EMAR FOR DETAILS. FAMILY AT BEDSIDE. WATER AND ICE CHIPS PROVIDED TO PATIENT PER HIS REQUEST. DENIES OTHER NEEDS. WILL CONTINUE TO MONITOR.
--- NOTE | 2019-06-19 21:00 | NUR ---
DANGLED AT BEDSIDE, X2 RN ASSISST ORDERED BY PHYSICIAN. TOLERATED WELL. WILL CONTINUE TO MONITOR.
--- NOTE | 2019-06-19 21:17 | NUR ---
PATIENT C/O PAIN, PRN PERCOCET GIVEN, WATER PROVIDED. NO DYSPHAGIA. DENIES OTHER NEEDS. WILL CONTINUE TO MONITOR.
--- NOTE | 2019-06-19 23:00 | NUR ---
REASSESSMENT COMPLETED PER FLOW SHEET, SEE FOR DETAILS.
[2019-06-20] VITALS (24 sets, daily range): BP systolic 97–135; BP diastolic 54–74
--- NOTE | 2019-06-20 01:00 | NUR ---
RESTING, NO ACUTE DISTRESS NOTED, DENIES NEEDS. WILL CONTINUE TO MONITOR.
--- NOTE | 2019-06-20 03:00 | NUR ---
REASSESSMENT COMPLETED PER FLOW SHEET, SEE FOR DETAILS. DENIES PAIN OR NEEDS. PPP. WILL CONTINUE TO MONITOR.
--- NOTE | 2019-06-20 05:00 | NUR ---
CHG BATH GIVEN. BLAIR CARE PROVIDED. TOLERATED WELL.
--- NOTE | 2019-06-20 06:10 | NUR ---
ASSISSTED OOB TO CHAIR X2 RN ASSISST. TOLERATED WELL. WATER PROVIDED. DENIES OTHER NEEDS. WILL CONTINUE TO MONITOR.
[2019-06-20 06:38] LABS: HEMATOCRIT 31.6 % (42.0-54.0); HEMOGLOBIN 10.8 g/dL (13.5-17.5); MCH 30.9 pg (26.0-34.0); MCHC 34.2 g/dL (31.0-37.0); MCV 90.5 fL (80.0-100.0); MEAN PLATELET VOLUME 10.4 fL (7.4-10.4); RBC 3.49 10x6/uL (4.20-6.10); RDW 15.1 % (11.5-14.5); WBC 14.9 10x3/uL (4.8-10.8)
[2019-06-20 07:01] LABS: ALBUMIN 2.8 g/dL (3.4-5.0); BILIRUBIN - TOTAL 0.28 mg/dL (0.2-1.3); CALCIUM 8.1 mg/dL (8.5-10.1); CARBON DIOXIDE 25.4 mmol/L (21.0-32.0); CREATININE - SERUM 1.7 mg/dL (0.6-1.3)
--- NOTE | 2019-06-20 07:14 | NUR ---
SHIFT REPORT RECEIVED. PT UP IN CHAIR, A&A. ON 3L O2 VIA NC. VSS. CT X 3 TO 20CM SUCTION. NO AIR LEAK NOTED. JOYCE DRAINS X 2. TPM WIRES COILED AND SECURED. MIDSTERNAL DRESSING C/D/I. RLE HARVEST SITES DERMATOLOGIST. PT RATES PAIN 7/10 AFTER COUGH DEEP BREATH AND I.S. EXERCISES. PULLS 500-750 ON I.S. BLAIR CATHETER IN PLACE WITH YELLOW URINE NOTED. RIJ DRESSING C/D/I. PLASMOLYTE AT 100ML/HR, AMIODARONE AT 16.7ML/HR AND ZINACEF AT 11.4. SHIFT ASSESSMENT CHARTED IN FLOWSHEET. PT AWARE OF LIMITATIONS. CALL LIGHT IS IN REACH. WILL CONTINUE TO MONITOR.
--- NOTE | 2019-06-20 07:38 | OP ---
PATIENT NAME: CAMI KNAPP MEDICAL RECORD: [id number] :51 LOCATION:[id number] ADMISSION DATE:06/14/19 SURGEON: TONY DANIEL MD DATE OF OPERATION: 06/19/2019 SURGEON: Tony Daniel MD SENIOR MATERIALS PLANNER: Ras Bradshaw OPERATIONS PERFORMED: 1. Coronary artery bypass graft times 3 (left internal mammary artery to LAD, right internal mammary artery to right coronary artery, and reverse saphenous vein graft from aorta to first obtuse marginal), 2 arterial and 1 venous graft. 2. Endoscopic saphenous vein harvest. PREOPERATIVE DIAGNOSES: Carotid stenosis, status post carotid endarterectomy; and coronary artery disease. POSTOPERATIVE DIAGNOSES: Carotid stenosis, status post carotid endarterectomy; and coronary artery disease. ANESTHESIA: General endotracheal anesthesia. ESTIMATED BLOOD LOSS: Total cardiopulmonary bypass with Cell Saver retransfusion. COMPLICATIONS: None. SPECIMENS: Mediastinal lymph node. CONDITION: Stable. DISPOSITION: CV ICU. COMPLICATIONS: None. OPERATIVE FINDINGS: 1. Transesophageal echocardiography confirmed a normal heart with trace mitral regurgitation before and after cardiopulmonary bypass. 2. The left internal mammary artery was a good conduit. The LAD was 2.0-mm vessel with proximal plaque. 3. The right internal mammary artery was used as a pedicle graft to the right coronary artery, which was a 1.5-mm vessel with severe disease. 4. The ramus intermedius did not appear to have significant stenosis, but the first obtuse marginal, which was about a centimeter and a half distal to this vessel and running parallel, was a 1.5-mm vessel with proximal plaque. The more distal circumflex branches were smaller and not amenable to bypass. OPERATIVE INDICATION: Coronary artery disease. OPERATIVE SUMMARY IN DETAIL: The patient was brought to the operating suite. General anesthesia was obtained. The patient was prepped and draped. Greater saphenous vein was harvested endoscopically from the right thigh. Side branches were divided with electrocautery. Vessel was ligated proximally and distally, and removed. Side branches were tied and a single thin site was oversewn. Leg OPERATIVE REPORT [id number] CAMI KNAPP was irrigated and closed in 2 layers and later wrapped with an elastic wrap. Median sternotomy incision was made. Subcutaneous tissue was divided with electrocautery. Sternum was divided with a saw. Left hemisternum was elevated. Left pleural cavity was entered. Left internal mammary veins were taken down. Right hemisternum was elevated. Right internal mammary artery was taken down as a skeletonized pedicle graft. Heparin was given. Internal mammary was clipped distally and made ready for anastomosis. Then, the sternal retractor was placed. Pericardium was opened. The aorta was cannulated. Dual stage venous cannula was inserted. Left internal mammary artery was clipped and made ready for anastomosis. The patient was placed on cardiopulmonary bypass. Once activated clotting time was appropriately elevated, the sites for distal anastomoses were selected and good cardioplegic cannula was inserted. The patient's temperature was allowed to drift downwardly. Cross-clamp was placed and cardioplegia was given antegrade and this was repeated down the completed vein graft at 15- to 20-minute intervals. Distal anastomosis was performed in standard technique and proximal anastomosis with a single cross-clamp. The patient was rewarmed, weaned off cardiopulmonary bypass, and was stable. Proximal and distal anastomotic sites were without bleeding. Protamine was given. Grafts lay appropriately. Both chests were irrigated and evacuated. Pericardial fat was loosely reapproximated. A drain was placed in mediastinum and both pleural cavities. Ventricular pacing wires were placed. The internal mammary harvest sites were without bleeding. Sternum was closed with wires. Fascia was closed. Subcutaneous tissue was closed. Skin was closed. Dermabond was placed. Needle and sponge counts were reported as correct. The patient was taken to ICU in stable condition. TRANSINT:[id number] Voice Confirmation ID: [id number] DOCUMENT ID: [id number] TONY DANIEL MD at 0738 CC: ZEHRA SAMSON M.D. [id number] DICTATION DATE: 06/19/19 1640 LOSS PREVENTION INVESTIGATOR: 06/19/19 1858 ADM IN [facility] [address] [place] [address]
--- NOTE | 2019-06-20 07:38 | NUR ---
ORAL CARE DONE WITH PERIDEX
[2019-06-20 08:17] LABS: ANION GAP 14.2 mmol/L (8-16); POTASSIUM - SERUM 4.6 mmol/L (3.5-5.1)
--- NOTE | 2019-06-20 08:22 | NUR ---
SUBSTERNAL DRESSING CHANGED PER ORDERS. TPM WIRES COILED AND SECURED. BLAIR CATHETER AND DELVIN DC'D PER ORDERS. PT RESTING IN CHAIR. FAMILY AT BEDSIDE. WILL CONTINUE TO MONITOR.
--- NOTE | 2019-06-20 08:55 | NUR ---
AM MEDS GIVEN. AMIODARONE DRIP STOPPED AT 0800 PER ORDERS. AMIODARONE PO GIVEN PER ORDERS. PERCOCET GIVEN FOR PAIN 05/31. WILL CONTINUE TO MONITOR.
--- NOTE | 2019-06-20 12:00 | NUR ---
CTS REMOVED BY DR DANIEL
--- NOTE | 2019-06-20 16:22 | NUR ---
1300 AMBULATED WITH PT THEN ASSISTED BACK TO BED 1500 ASSISTED UP TO CHAIR
--- NOTE | 2019-06-20 17:12 | NUR ---
NO VOID SINCE RECIEVING PT, 300ML ON BLADDER SCAN, DR DANIEL NOTIFIED WITH ORDERS FOR BLAIR INSERTION
--- NOTE | 2019-06-20 17:29 | NUR ---
16FR BLAIR INSERTED X1 ATTEMPT USING STERILE TECHNIQUE
--- NOTE | 2019-06-20 17:38 | NUR ---
ORAL CARE DONE WITH PERIDEX
--- NOTE | 2019-06-20 18:13 | NUR ---
PT ASSISTED BACK TO BED
--- NOTE | 2019-06-20 19:30 | NUR ---
PT AOX4, PUPILS EQUAL AND REACTIVE. LUNG SOUNDS CLEAR/DIMINISHED. 3L O2 VIA NC, SPO2 95. S1S2 HEARD, PERIPHERAL PULSES PRESENT. CHEST DRSGS CDI. RT AND LT SUBSTERNAL JOYCE DRAINS WITH DRSGS CDI, COMPRESSED. RT NECK INCISION OPEN TO AIR, EDGES APPROXIMATED, NO BLEEDING. BLAIR CATH INTACT WITH CLEAR, YELLOW URINE TO BEDSIDE DRAINAGE. COUGH/DB WITH GOOD EFFORT. REACHING 750 ON I/S. PT REPOSITIONED FOR COMFORT. DENIES FURTHER NEEDS AT THIS TIME. VSS. CALL LIGHT AND BEDSIDE TABLE WITHIN PT REACH, CPOC.
--- NOTE | 2019-06-20 21:13 | NUR ---
HS MEDS GIVEN, TOLERATED WELL. FRESH WATER TO BEDSIDE. REPOSITIONED FOR COMFORT. VSS, DENIES NEEDS AT THIS TIME. CALL LIGHT AND BEDSIDE TABLE WITHIN PT REACH. CPOC.
--- NOTE | 2019-06-20 23:30 | NUR ---
REASSESSMENT COMPLETE, SEE FLOWSHEET FOR ALL FINDINGS. PT RESTING COMFORTABLY, DENIES PAIN AT THIS TIME. COUGH/DB WITH GOOD EFFORT. PT REPOSITIONED FOR COMFORT. DENIES FURTHER NEEDS AT THIS TIME. CALL LIGHT AND BEDSIDE TABLE WITHIN PT REACH. CPOC.
[2019-06-21] VITALS (23 sets, daily range): BP systolic 87–132; BP diastolic 55–79
--- NOTE | 2019-06-21 01:19 | NUR ---
PT REQUESTS PRN PAIN MEDICATION FOR PAIN 05/31. MEDICATION PROVIDED PER ORDER, PT REPOSITIONED FOR COMFORT. I/S COMPLETED REACHING 500 X10. COUGH/DB WITH GOOD EFFORT. VSS. CPOC.
--- NOTE | 2019-06-21 03:30 | NUR ---
REASSESSMENT COMPLETE, SEE FLOWSHEET FOR ALL FINDINGS. PT REPOSIIONED FOR COMFORT. COUGH/DB WITH GOOD EFFORT. I/S COMPLETED REACHING 500 X10. DENIES FURTHER NEEDS AT THIS TIME. CALL LIGHT AND BEDSIDE TABLE WITHIN PT REACH. CPOC.
--- NOTE | 2019-06-21 04:45 | NUR ---
CHG BATH AND COMPLETE LINEN CHANGE PROVIDED. ORAL CARE PROVIDED. UP TO CHAIR, TOLERATED WELL. VSS, COUGH/DB WITH GOOD EFFORT. I/S COMPLETED REACHING 500 X10. CVL DRSG CHANGED PER PROTOCOL. CALL LIGHT AND BEDSIDE TABLE WITHIN PT REACH. CPOC.
[2019-06-21 06:02] LABS: HEMATOCRIT 29.9 % (42.0-54.0); HEMOGLOBIN 10.1 g/dL (13.5-17.5); MCH 30.7 pg (26.0-34.0); MCHC 33.8 g/dL (31.0-37.0); MCV 90.9 fL (80.0-100.0); MEAN PLATELET VOLUME 10.8 fL (7.4-10.4); RBC 3.29 10x6/uL (4.20-6.10); RDW 15.1 % (11.5-14.5)
[2019-06-21 06:28] LABS: ALBUMIN 2.6 g/dL (3.4-5.0); ANION GAP 13.4 mmol/L (8-16); BILIRUBIN - TOTAL 0.79 mg/dL (0.2-1.3); CALCIUM 8.6 mg/dL (8.5-10.1); CARBON DIOXIDE 27.3 mmol/L (21.0-32.0); CREATININE - SERUM 1.9 mg/dL (0.6-1.3); POTASSIUM - SERUM 4.7 mmol/L (3.5-5.1); PROTEIN - SERUM 6.3 g/dL (6.4-8.2)
--- NOTE | 2019-06-21 07:06 | NUR ---
ORAL CARE DONE WITH PERIDEX
--- NOTE | 2019-06-21 08:43 | NUR ---
pt up in chair. breakfast tray served and pt fed self. family at bs.
--- NOTE | 2019-06-21 12:09 | NUR ---
Nutrition Follow-up: S/p CABG on 06/19. Pt reports that appetite has not returned fully since surgery. Tolerating PO. RN reports pt agreed to try Ensure and that pt's has been bringing in food. Diet: Regular Last BM: 06/18 Wt: 195# Labs noted: Alb 2.6, Glu 110, GFR 38, Na 135 Meds noted: Colace, Senokot May consider changing to cardiac diet. Will provide food choices with selective menus and honor food preferences. RD following.
--- NOTE | 2019-06-21 12:31 | NUR ---
DR DRAKE HERE ON ROUNDS.
--- NOTE | 2019-06-21 17:42 | NUR ---
ASSISTED PT BACK TO BED. PT ASKIN FOR PAIN MED. PO PAIN MED GIVEN REQUESTED. PT SITTING UP ON SIDE OF BED.
--- NOTE | 2019-06-21 19:30 | NUR ---
REPORT RECIEVED, PT AAOX4, VITALS STABLE, SEE FLOWSHEET. S1S2, O2 AT 4L VIA NC. MIDSTERNAL INCISION SITE, DRESSING CDI, SUBSTERNAL DRESSING CDI, JOYCE DRAIN X2 SUBSTERNAL, BOTH COMPRESSED AND DRAINING, BLAIR IN PLACE, YELLOW URINE, HARVEST SITE IN RIGHT LOWER LEG, OPEN TO AIR, CDI, INCISION SITE ON RIGHT NECK, OPEN TO AIR, WELL APPROXIMATED. SCD'S ON, RESTING IN BED.
[2019-06-21 19:45] LABS: APPEARANCE CLEAR (CLEAR); BILIRUBIN NEGATIVE (NEGATIVE); COLOR YELLOW (YELLOW); GLUCOSE NEGATIVE (NEGATIVE); KETONE NEGATIVE (NEGATIVE); NITRITE NEGATIVE (NEGATIVE); PROTEIN TRACE mg/dL (NEGATIVE); UROBILINOGEN NORMAL (NORMAL)
[2019-06-21 19:46] LABS: BACTERIA MANY /hpf (NONE SEEN); RED CELLS - URINE 0-5 /hpf (0-5); WHITE CELLS - URINE 0-5 /hpf (0-5)
--- NOTE | 2019-06-21 21:12 | NUR ---
PM MEDS ADMINISTERED, SEE EMAR. PT SITTING UP AT SIDE OF BED, I.S. REINFORCED, EATING JELLO. NO COMPLAINTS OF PAIN, VITALS STABLE. WILL CONTINUE TO MONITOR.
--- NOTE | 2019-06-21 23:00 | NUR ---
PT RESTING IN BED, VITALS STABLE. WILL CONTINUE TO MONITOR
[2019-06-22] VITALS (25 sets, daily range): BP systolic 90–142; BP diastolic 56–79
--- NOTE | 2019-06-22 01:00 | NUR ---
PT RESTING IN BED, VITALS STABLE. WILL CONTINUE TO MONITOR
--- NOTE | 2019-06-22 03:00 | NUR ---
SUBSTERNAL DRESSING CHANGED, REASSESSMENT COMPLETED, SEE FLOWSHEET.
--- NOTE | 2019-06-22 05:15 | NUR ---
CHG BATH GIVEN, PT AMBULATED TO CHAIR. ASHA HOSE ON, FRESH WATER GIVEN PER PT REQUEST.
[2019-06-22 06:08] LABS: BASOPHILS 0.1 % (0-2); EOSINOPHILS 1.7 % (0-7); HEMATOCRIT 26.7 % (42.0-54.0); IMMATURE GRANULOCYTES 0.2 % (0-5); LYMPHOCYTES 10.3 % (15-50); MCH 30.2 pg (26.0-34.0); MCHC 33.7 g/dL (31.0-37.0); MCV 89.6 fL (80.0-100.0); MEAN PLATELET VOLUME 10.3 fL (7.4-10.4); NEUTROPHILS 74.7 % (40-80); PLATELET COUNT 205 10x3/uL (130-400); RBC 2.98 10x6/uL (4.20-6.10); RDW 14.9 % (11.5-14.5)
[2019-06-22 06:26] LABS: WBC 8.8 10x3/uL (4.8-10.8)
[2019-06-22 06:57] LABS: ALBUMIN 2.4 g/dL (3.4-5.0); ANION GAP 10.6 mmol/L (8-16); BILIRUBIN - TOTAL 0.72 mg/dL (0.2-1.3); CALCIUM 8.9 mg/dL (8.5-10.1); CARBON DIOXIDE 27.7 mmol/L (21.0-32.0); CREATININE - SERUM 1.5 mg/dL (0.6-1.3); POTASSIUM - SERUM 4.3 mmol/L (3.5-5.1); PROTEIN - SERUM 6.2 g/dL (6.4-8.2)
--- NOTE | 2019-06-22 07:30 | NUR ---
PT RECIEVED UP IN CHAIR ALERT AND ORIENTED 4L NC, R SUBCLAVIAN CVL DRESSING CDI, BLAIR DRAINING YELLOW URINE, SEE SHIFT ASSESSMENT FOR DETAILS
--- NOTE | 2019-06-22 09:01 | NUR ---
BLAIR DCD TIP INTACT, TPM WIRES AND BLAKES REMOVED BY DR KHUSHBOO CARRERA
--- NOTE | 2019-06-22 16:39 | NUR ---
1100 AMBULATED 250FT WITH PT 1300 ATE 50% LUNCH 1500 AMBULATED 500FT 1630 DINNER TRAY SERVED
--- NOTE | 2019-06-22 18:12 | NUR ---
PT ATE 75% DINNER
--- NOTE | 2019-06-22 19:00 | NUR ---
REPORT RECEIVED, SHIFT ASSESSMENT COMPLETE SEE FLOW SHEET, PT AAOx4 SITTING UP IN CHAIR, DENIES PAIN OR NEEDS, RT SUBCLAVIAN CVL SL, INCISIONS CDI RELL, VSS, WILL CONTINUE TO MONITOR
[2019-06-23] VITALS (22 sets, daily range): BP systolic 94–136; BP diastolic 55–71
[2019-06-23 05:53] LABS: ALBUMIN 2.2 g/dL (3.4-5.0); ANION GAP 9.8 mmol/L (8-16); BILIRUBIN - TOTAL 0.47 mg/dL (0.2-1.3); CALCIUM 8.5 mg/dL (8.5-10.1); CARBON DIOXIDE 29.4 mmol/L (21.0-32.0); CREATININE - SERUM 1.2 mg/dL (0.6-1.3); POTASSIUM - SERUM 4.2 mmol/L (3.5-5.1); PROTEIN - SERUM 6.2 g/dL (6.4-8.2)
[2019-06-23 05:54] LABS: BASOPHILS 0.3 % (0-2); EOSINOPHILS 2.7 % (0-7); HEMOGLOBIN 10.4 g/dL (13.5-17.5); IMMATURE GRANULOCYTES 0.5 % (0-5); LYMPHOCYTES 12.5 % (15-50); MCH 29.1 pg (26.0-34.0); MCHC 32.5 g/dL (31.0-37.0); MCV 89.4 fL (80.0-100.0); MEAN PLATELET VOLUME 10.2 fL (7.4-10.4); MONOCYTES 11.4 % (2-11); NEUTROPHILS 72.6 % (40-80); PLATELET COUNT 202 10x3/uL (130-400); RBC 3.58 10x6/uL (4.20-6.10); RDW 14.9 % (11.5-14.5); WBC 6.7 10x3/uL (4.8-10.8)
[2019-06-23] MEDS ORDERED: PERCOCET 5-3251 TAB PO (12:41)
--- NOTE | 2019-06-23 13:41 | NUR ---
PT SITTING UP IN CHAIR. FAMILY AT BS.
--- NOTE | 2019-06-23 14:55 | NUR ---
Nutrition Follow-up: Pt reports improvement in appetite/PO intake. Diet: Regular PO intake: 66% avg meal intake Last BM: 06/18 Wt: 193# Labs reviewed Meds noted: Naresh Booth May consider cardiac diet. [place] food preferences. RD following.
[2019-06-24] VITALS (7 sets, daily range): BP systolic 109–148; BP diastolic 59–73
[2019-06-24 05:38] LABS: BASOPHILS 0.4 % (0-2); EOSINOPHILS 4.3 % (0-7); HEMOGLOBIN 8.9 g/dL (13.5-17.5); IMMATURE GRANULOCYTES 0.9 % (0-5); MCH 30.3 pg (26.0-34.0); MCHC 34.2 g/dL (31.0-37.0); MCV 88.4 fL (80.0-100.0); MEAN PLATELET VOLUME 9.7 fL (7.4-10.4); MONOCYTES 10.8 % (2-11); NEUTROPHILS 66.6 % (40-80); PLATELET COUNT 297 10x3/uL (130-400); RBC 2.94 10x6/uL (4.20-6.10); RDW 14.8 % (11.5-14.5); WBC 7.8 10x3/uL (4.8-10.8)
[2019-06-24 06:05] LABS: ALBUMIN 2.3 g/dL (3.4-5.0); ANION GAP 11.2 mmol/L (8-16); BILIRUBIN - TOTAL 0.38 mg/dL (0.2-1.3); CALCIUM 8.9 mg/dL (8.5-10.1); CARBON DIOXIDE 28.8 mmol/L (21.0-32.0); CREATININE - SERUM 1.2 mg/dL (0.6-1.3); PROTEIN - SERUM 6.4 g/dL (6.4-8.2)
--- NOTE | 2019-06-24 07:20 | NUR ---
UP OOB IN CHAIR. VSS, DENIES PAIN.
[2019-06-24] MEDS ORDERED: LIPITOR10 MG PO (09:46)
[2019-06-24] MEDS ORDERED: PERCOCET 10-321 EAC1 PO (09:46)
[2019-06-24] MEDS ORDERED: AMIODARONE HCL200 MG PO (09:46)
[2019-06-24] MEDS ORDERED: Narcan INJ IV (09:46)
[2019-06-24] MEDS ORDERED: LOPRESSOR25 MG PO (09:46)
[2019-06-24] MEDS ORDERED: PLAVIX75 MG PO (09:46)
[2019-06-24] MEDS ORDERED: COLACE100 MG PO (09:46)
[2019-06-24] MEDS ORDERED: ASPIRIN EC81 M1 PO (09:46)
--- NOTE | 2019-06-24 10:06 | NUR ---
CVL DCD. PRESSURE HELD, DSNG APPLIED. PT ROCKY WELL. TIP INTACT.
--- NOTE | 2019-06-24 10:29 | NUR ---
SPOKE TO DR MENDOZA SLAB INSTALLER FOR DR SAMSON. REPORTED TO HIM THAT ADMITION ORDER NEEDS TO BE SIGNED FOR CV DR MCKINLEY TO DO D/C ORDER. DR MENDOZA STATES " UNABLE TO SIGN DR CONTRERAS ADMIT ORDER" DR MCKINLEY AND DR MENDOZA STATE TO DC HOME. REPORTED TO CARISA BATISTA AND CM THAT PT WILL DC HOME WITH OUT A DC ORDER PLACED IN THE COMPUTER. WALDEMAR WITH DR MCKINLEY HAS DONE DC PAPERS AND DID DC TEACHING TO PT AND FAMILY.
--- NOTE | 2019-06-24 12:22 | NUR ---
DC INSTRUCTIONS GIVEN. PT AND FAMILY VERB UNDERSTANDING.
--- NOTE | 2019-06-26 18:35 | MORECARE ---
CASE MANAGEMENT DISCHARGE SUMMARY PATIENT: CAMI KNAPP UNIT: [id number] ADM DATE: 06/14/19 AGE: 69 : 51 SEX: M [facility] AUTHOR: RENZO,DOC PHYSICIAN: REFERRING PHYSICIAN: ZEHRA SAMSON M.D. DATE OF SERVICE: 06/26/19 Discharge Plan Patient Name: CAMI KNAPP Facility: [facility]:[place] : 1950 Planned Disposition: Home Anticipated Discharge Date: Discharge Date: 06/24/2019 Expected LOS: Initial Reviewer: [email or web address] Initial Review Date: 06/15/2019 Generated: 06/26/19 7:35 pm DCP- Discharge Planning Updated by [email or web address]: Eliana Cassidy on 06/15/19 6:[address] Patient Name: CAMI KNAPP Admission Status: Elective Accout number: [id number] Admission Date: 06-14-2019 : 1950 Admission Diagnosis:ABNORMAL RESULT OF CARDIOVASCULAR FUNCTI Attending: ZEHRA SAMSON Current LOS: 1 Anticipated DC Date: Planned Disposition: Home Primary Insurance: MEDICARE A & B Discharge Planning Comments: CM met with patient and spouse (Ayana) at bedside after explaining CM role and obtaining verbal consent. Patient lives at home with his Ayana and plans to return there upon discharge. Patient feels this would be a safe discharge. CM discussed availability / needs of home health and medical equipment. Patient denies any discharge needs at this time. Patient states he will have his drive him home upon discharge. CM will continue to follow and assist as needed with discharge planning / needs. Molding And Trim Installer: Eliana Cassidy DCPIA - Discharge Planning Initial Assessment Updated by [email or web address]: Eliana Cassidy on 06/15/19 7:11 pm * Is the patient Alert and Oriented? Yes * How many steps to enter\exit or inside your home? ramp * PCP [facility] * Pharmacy [facility] * Preadmission Environment Home with Family * ADLs Independent * Equipment None * List name and contact numbers for known caregivers / representatives who currently or will assist patient after discharge: AYANA KNAPP - - [phone] * Verbal permission to speak to the caregivers and representatives has been obtained from the patient. Yes * Community resources currently utilized None * Additional services required to return to the preadmission environment? No * Can the patient safely return to the preadmission environment? Yes * Has this patient been hospitalized within the prior 30 days at any hospital? No Coverage Notice Reviewer: [id number] Velia Cassidy Notice Issued Date-Time: 06/23/2019 13:06 Notice Type: IM Discharge Notice Notice Delivered To: Patient Relationship to Patient: Self Shop Teacher Name: Delivery Method: HAND - Hand Delivered April Days: Prior Verbal Notification: Recipient Understood Notice: Yes Recipient Signature: Yes Med Rec Note Co-signed by Attending: Coverage Notice Comment: Last DP export: 06/15/19 6:13 p Patient Name: CAMI KNAPP Page [id number] at 1835 All edits/amendments must be made on the electronic document DICTATION DATE: 06/26/191834 LEGAL MEDIATOR: ANGIE 06/26/191834 RPT#: [id number] DC DATE:06/24/19 STATUS: DIS IN [facility] [address] [place] [address] END OF REPORT
--- NOTE | 2019-06-27 09:52 | TEE ---
PATIENT:CAMI KNAPP MEDICAL RECORD: [id number] LOCATION:[place] [address] AGE OF PATIENT: 69 ADMISSION DATE: 06/14/19 SEX: M REFERRING PHYSICIAN: INTERPRETING PHYSICIAN: GEM MENDOZA MD TRANSESOPHAGEAL ECHOCARDIOGRAM Date: 06/19/19 SHIKHA CHARGE Y INDICATIONS: CABG PREMEDICATIONS: PATIENT'S RESPONSE PROCEDURE DOPPLER MEASUREMENTS: LVIT LA 3.5 PA 119 RA LVOT 120 RVOT 88 Asc. Ao 158 AV Gradient Peak 9.95 AV Mean 4.89 AV Area 2.7 MV Gradient Peak 5.20 MV Mean 2.10 MV Area INTERPRETATION: Doppler: 2-D: COLOR FLOW DOPPLER NORMAL SALINE STUDY: MISCELLANOUS: DIAGNOSIS: PLAN: Check Viewer:Tomás Tan Full Stack Python Developer: Tomás AGUSTIN COMMENTS: DANIEL PATIENT DATE OF SERVICE: 06/19/2019 PROCEDURE: Transesophageal echo evaluation of valvular structures during bypass surgery. FINDINGS: 1. Left ventricular chamber size is within normal limits. Left ventricular systolic function is normal. Overall ejection fraction estimated at 65%. 2. Left atrium, right atrium and right ventricular chamber sizes are within TRANSESOPHAGEAL ECHOCARDIOGRAM REPORT [id number] CAMI KNAPP normal limits. 3. Valvular structures have normal structure and motion. 4. Doppler interrogation reveals pljud-ul-cnyr mitral regurgitation, no other valvular insufficiency or stenosis. 5. No evidence of pericardial effusion or left ventricular thrombus. TRANSINT:[id number] Voice Confirmation ID: [id number] DOCUMENT ID: [id number] at [id number] CC: [id number] DICTATION DATE: 06/19/19 1558 STOCK ROLLER: 06/20/19 0252 DIS IN 06/24/19 [facility] [address] [place] [address]
== END 2019-06-24 12:23 | disposition home or self-care (01) | DRG 234 ==
LOC: D.CATH 10:44 → D.CVICU 16:00 → D.CATH 16:01 → D.CVICU 16:01
PROVIDERS: Internal Medicine Nephrology; Thoracic Surgery (Cardiothoracic Vascular Surgery); ADMIT Internal Medicine Cardiovascular Disease; ATTEND Internal Medicine Cardiovascular Disease
PROC: B2151ZZ Fluoroscopy of Left Heart using Low Osmolar Contrast (ICD-10-PCS; 2019-06-14)
PROC: 4A023N7 Measurement of Cardiac Sampling and Pressure, Left Heart, Percutaneous Approach (ICD-10-PCS; 2019-06-14)
PROC: B2111ZZ Fluoroscopy of Multiple Coronary Arteries using Low Osmolar Contrast (ICD-10-PCS; principal; 2019-06-14 13:00)
PROC: 03CK0ZZ Extirpation of Matter from Right Internal Carotid Artery, Open Approach (ICD-10-PCS; 2019-06-16)
PROC: 03UK0JZ Supplement Right Internal Carotid Artery with Synthetic Substitute, Open Approach (ICD-10-PCS; 2019-06-16)
PROC: 02100Z9 Bypass Coronary Artery, One Artery from Left Internal Mammary, Open Approach (ICD-10-PCS; 2019-06-19)
PROC: 02100Z8 Bypass Coronary Artery, One Artery from Right Internal Mammary, Open Approach (ICD-10-PCS; 2019-06-19)
PROC: 021009W Bypass Coronary Artery, One Artery from Aorta with Autologous Venous Tissue, Open Approach (ICD-10-PCS; 2019-06-19)
PROC: 06BP4ZZ Excision of Right Saphenous Vein, Percutaneous Endoscopic Approach (ICD-10-PCS; 2019-06-19)
PROC: B24BZZ4 Ultrasonography of Heart with Aorta, Transesophageal (ICD-10-PCS; 2019-06-19)
PROC: 5A1221Z Performance of Cardiac Output, Continuous (ICD-10-PCS; 2019-06-19)
DX: I25.10 Atherosclerotic heart disease of native coronary artery without angina pectoris (principal); N17.9 Acute kidney failure, unspecified; N39.0 Urinary tract infection, site not specified; I65.21 Occlusion and stenosis of right carotid artery; J44.9 Chronic obstructive pulmonary disease, unspecified; F17.200 Nicotine dependence, unspecified, uncomplicated; R05 Cough; K21.9 Gastro-esophageal reflux disease without esophagitis; E03.9 Hypothyroidism, unspecified; I12.9 Hypertensive chronic kidney disease with stage 1 through stage 4 chronic kidney disease, or unspecified chronic kidney disease; N18.9 Chronic kidney disease, unspecified; J30.9 Allergic rhinitis, unspecified; R91.1 Solitary pulmonary nodule; D64.9 Anemia, unspecified; R06.89 Other abnormalities of breathing

== ENCOUNTER → 2019-07-12 12:17 | Outpatient (CLI) | payer MEDICARE, BC ==
[2019-06-17 14:23] VITALS: BMI 29.5
[~2019-07-12 12:17] MED LIST: AMIODARONE HCL200 MG PO; ASPIRIN EC81 M1 PO; BUPROPION HCL75 MG PO; COLACE100 MG PO; FENOFIBRATE160 MG PO; FLOMAX0.4 MG PO; LEVOTHYROXINE75 MCG PO; LIPITOR10 MG PO; LISINOPRIL20 MG PO; LOPRESSOR25 MG PO; LOVASTATIN20 MG PO; MOBIC7.5 MG PO; Narcan INJ IV; PEPCID AC20 MG PO; PERCOCET 10-321 EAC1 PO; PERCOCET 5-3251 TAB PO; PLAVIX75 MG PO; PROCARDIA XL30 MG PO
[2019-07-12 13:35] LABS: HEMOGLOBIN 11.1 g/dL (13.5-17.5); MCH 29.9 pg (26.0-34.0); MCHC 33.6 g/dL (31.0-37.0); MCV 88.9 fL (80.0-100.0); MEAN PLATELET VOLUME 10.1 fL (7.4-10.4); RBC 3.71 10x6/uL (4.20-6.10); RDW 14.2 % (11.5-14.5); WBC 10.5 10x3/uL (4.8-10.8)
[2019-07-12 13:53] LABS: ALBUMIN 3.6 g/dL (3.4-5.0); ANION GAP 16.1 mmol/L (8-16); BILIRUBIN - TOTAL 0.38 mg/dL (0.2-1.3); CALCIUM 10.4 mg/dL (8.5-10.1); CARBON DIOXIDE 25.3 mmol/L (21.0-32.0); CREATININE - SERUM 2.1 mg/dL (0.6-1.3); POTASSIUM - SERUM 4.4 mmol/L (3.5-5.1); PROTEIN - SERUM 7.2 g/dL (6.4-8.2)
== END | disposition home or self-care (01) ==
LOC: D.LAB 12:17
PROVIDERS: ATTEND Thoracic Surgery (Cardiothoracic Vascular Surgery)
DX: D64.9 Anemia, unspecified (principal); J90 Pleural effusion, not elsewhere classified

== ENCOUNTER → 2020-07-02 12:22 | Outpatient (CLI) | payer MEDICARE, BC ==
[2019-06-17 14:23] VITALS: BMI 29.5
== END | disposition home or self-care (01) ==
LOC: D.US 12:22
PROVIDERS: ATTEND Thoracic Surgery (Cardiothoracic Vascular Surgery)
DX: I65.22 Occlusion and stenosis of left carotid artery (principal)